=== PATIENT | female | born 1980 | race Hispanic/Latino ===

== ENCOUNTER 2023-11-18 07:39 | Emergency (ER) | payer SELFPAY ==
[~2023-11-18] VITALS: Ht 160 cm; Wt 86.2 kg
[2023-11-18 07:49] VITALS: TEMP 98.3
[2023-11-18] MEDS: ONDANSETRON HCL INJ 2MG/ML 2ML 2 MG/ML VIAL IV STA (08:12)
[2023-11-18] MEDS: KETOROLAC TROMETHAMINE 30 MG/ML VIAL IV STA (08:13)
[2023-11-18] MEDS: SODIUM CHLORIDE 0.9% 1000ML 1,000 ML IV STA (08:13)
[2023-11-18 08:15] VITALS: RESP 16
[2023-11-18 08:19] LABS: BASOPHILS % 0.1 % (0.0-1.0); HEMOGLOBIN 10.4 g/dL (12.0-16.0); LYMPHOCYTES # (AUTO) 1.1 (1.0-3.2); LYMPHOCYTES % 10.5 % (18.0-39.1); MEAN CORPUSCULAR HEMOGLOBIN 22.8 pg (28-32); MEAN CORPUSCULAR HGB CONC 31.5 g/dL (31-35); MEAN CORPUSCULAR VOLUME 72.4 fL (81-99); MONOCYTES # (AUTO) 0.5 (0.2-0.8); MONOCYTES % 4.5 % (4.4-11.3); NEUTROPHILS # (AUTO) 8.7 (2.1-6.9); NEUTROPHILS % 84.2 % (38.7-80.0); PLATELET COUNT 203 x10e3/uL (140-360); RED BLOOD COUNT 4.56 x10e6/uL (3.6-5.1); RED CELL DISTRIBUTION WIDTH 16.3 % (11.7-14.4); WHITE BLOOD COUNT 10.33 x10e3/uL (4.8-10.8)
[2023-11-18 08:36] LABS: ALANINE AMINOTRANSFERASE 21 IU/L (0-55); ALBUMIN 3.3 g/dL (3.5-5.0); ALBUMIN/GLOBULIN RATIO 1.1 (0.8-2.0); ALKALINE PHOSPHATASE 128 IU/L (40-150); BILIRUBIN,TOTAL 0.5 mg/dL (0.2-1.2); BLOOD UREA NITROGEN 11 mg/dL (7-26); BUN/CREATININE RATIO 21 (6-25); CARBON DIOXIDE 18 mmol/L (22-29); CHLORIDE 111 mmol/L (98-107); CREATININE, SERUM 0.53 mg/dL (0.57-1.11); EST GLOMERULAR FILTRATION RATE 118 ML/MIN (>=60); GLUCOSE 99 mg/dL (74-118); MAGNESIUM 1.6 MG/DL (1.3-2.1); SODIUM 138 mmol/L (136-145); TOTAL PROTEIN 6.2 g/dL (6.5-8.1)
[2023-11-18 09:21] LABS: AMPHETAMINES SCREEN,URINE NEGATIVE (NEGATIVE); BENZODIAZEPINES SCREEN,URINE NEGATIVE (NEGATIVE); CANNABINOIDS SCREEN,URINE NEGATIVE (NEGATIVE); METHADONE SCREEN, URINE NEGATIVE (NEGATIVE); OPIATES SCREEN,URINE NEGATIVE (NEGATIVE); PHENCYCLIDINE SCREEN,URINE NEGATIVE (NEGATIVE)
[2023-11-18 09:22] LABS: BILIRUBIN,URINE NEGATIVE (NEGATIVE); CLARITY,URINE CLEAR (CLEAR); COLOR,URINE YELLOW (YELLOW); GLUCOSE, URINE NEGATIVE (NEGATIVE); KETONES,URINE NEGATIVE (NEGATIVE); LEUKOCYTE ESTERASE ,URINE NEGATIVE (NEGATIVE); NITRITE,URINE NEGATIVE (NEGATIVE); PH,URINE 5.5 (5 - 7); PROTEIN,URINE DIPSTICK NEGATIVE (NEGATIVE); URINE UROBILINOGEN 0.2 mg/dL (0.2 - 1)
[2023-11-18 09:35] LABS: BACTERIA,URINE MODERATE /HPF; EPITHELIAL CELLS,URINE RARE /LPF; RBC,URINE 0-5 /HPF (0-5)
[2023-11-18] MEDS ORDERED: ULTRAM 50MG50 MG PO (10:20)
[2023-11-18] MEDS ORDERED: CEFDINIR300 MG PO (10:20)
[2023-11-18 11:46] VITALS: PULSE 113
[2023-11-18 11:50] VITALS: BP 136/61; PULSE 113; RESP 18; O2SAT 100
== END 2023-11-18 11:50 | disposition home or self-care (01) ==
LOC: ER 07:50
DX: S32.028A Other fracture of second lumbar vertebra, initial encounter for closed fracture (principal); M25.551 Pain in right hip; Y04.2XXA Assault by strike against or bumped into by another person, initial encounter; Y92.488 Other paved roadways as the place of occurrence of the external cause; R94.31 Abnormal electrocardiogram [ECG] [EKG]; F17.210 Nicotine dependence, cigarettes, uncomplicated
CPT/HCPCS: 36415; 70450; 72125; 72131; 72192; 73700; 80053; 80307; 80320; 81001; 83735; 84702; 85025; 93005; 99284; J1885; J2405; J7030

== ENCOUNTER 2025-01-26 20:38 | Emergency (ER) | payer SELFPAY ==
[~2025-01-26] VITALS: Ht 160 cm; Wt 90.7 kg
[~2025-01-26 20:38] MED LIST: CEFDINIR300 MG PO; ULTRAM 50MG50 MG PO
[2025-01-26 20:40] VITALS: PULSE 114; RESP 19; TEMP 98.9
[2025-01-26] MEDS ORDERED: DEXAMETHASONE SOD PHOS 10 MG/1 ML VIAL ONE (22:14)
[2025-01-26] MEDS ORDERED: MEDROL4 M2 PO (22:18)
[2025-01-26] MEDS: DEXAMETHASONE SOD PHOS 10 MG/1 ML VIAL IM ONE (22:20)
[2025-01-26 22:42] VITALS: BP 145/72; PULSE 101; RESP 17; TEMP 98.4; O2SAT 95
== END 2025-01-26 22:55 | disposition home or self-care (01) ==
LOC: ER 22:03
DX: L25.9 Unspecified contact dermatitis, unspecified cause (principal); L29.9 Pruritus, unspecified
CPT/HCPCS: 99283; J1100

== ENCOUNTER 2025-02-19 06:35 | Emergency (ER) | payer SELFPAY ==
[~2025-02-19] VITALS: Ht 160 cm; Wt 90.7 kg
[~2025-02-19 06:35] MED LIST changes: +MEDROL4 M2 PO
[2025-02-19 06:47] VITALS: PULSE 102; TEMP 97.4
[2025-02-19 07:43] VITALS: RESP 18
[2025-02-19 07:46] LABS: BASOPHILS % 0.0 % (0.0-1.0); EOSINOPHILS % 0.2 % (0.0-6.0); LYMPHOCYTES % 40.0 % (18.0-39.1); MONOCYTES % 10.8 % (4.4-11.3); NEUTROPHILS % 48.8 % (38.7-80.0); RED CELL DISTRIBUTION WIDTH 15.1 % (11.7-14.4)
[2025-02-19 07:58] LABS: LEUKOCYTE ESTERASE ,URINE LARGE (NEGATIVE); PROTEIN,URINE DIPSTICK 2+ (NEGATIVE)
[2025-02-19 07:59] LABS: AMPHETAMINES SCREEN,URINE NEGATIVE (NEGATIVE); CANNABINOIDS SCREEN,URINE NEGATIVE (NEGATIVE); COCAINE SCREEN,URINE NEGATIVE (NEGATIVE); METHADONE SCREEN, URINE NEGATIVE (NEGATIVE); OPIATES SCREEN,URINE NEGATIVE (NEGATIVE); URINE UROBILINOGEN 0.2 mg/dL (0.2 - 1)
[2025-02-19 08:06] LABS: EPITHELIAL CELLS,URINE FEW /LPF; WBC,URINE (MAN) >50 /HPF (0-5)
[2025-02-19 08:10] LABS: EST GLOMERULAR FILTRATION RATE 124 ML/MIN (>=60)
[2025-02-19 08:51] VITALS: BP 128/55; PULSE 97; RESP 18; O2SAT 99
[2025-02-19] MEDS ORDERED: FLUCONAZOLE150 MG PO (09:03)
== END 2025-02-19 09:20 | disposition home or self-care (01) ==
LOC: ER 07:28
DX: R60.9 Edema, unspecified (principal); N39.0 Urinary tract infection, site not specified; R80.9 Proteinuria, unspecified
CPT/HCPCS: 36415; 71045; 80053; 80307; 81001; 83880; 84484; 84702; 85025; 93005; 99284